=== PATIENT | female | born 1970 | race Two or more races ===

== ENCOUNTER 2020-06-21 10:54 | Inpatient (IN) | payer BC ==
--- NOTE | 2020-06-21 11:33 | EDM.PDOC ---
ED HPI GENERAL MEDICAL PROBLEM - General Chief Complaint: Respiratory Problem Stated Complaint: SHORTNESS OF BREATH Time Seen by Provider: 06/21/20 11:32 Source of Information: Reports: Patient, RN, RN Notes Reviewed History Limitations: Reports: No Limitations - History of Present Illness INITIAL COMMENTS - FREE TEXT/NARRATIVE: Pt presents to ER with c/o shortness of breath and fever sensations. Pt is worried that she may have been COVID exposed. 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 She began to feel ill Vijay, 06/18/20 with generalized malaise and body aches. The shortness of breath began slowly and was much worse today. Denies Hx of asthma or DVT/PE. Onset: Gradual Onset Date: 06/18/20 Duration: Constant, Getting Worse Location: Reports: Chest, Generalized Quality: Reports: Ache Severity: Severe Improves with: Reports: None Worsens with: Reports: Other (Exertion) Associated Symptoms: Reports: No Other Symptoms - Related Data Allergies Allergy/AdvReac Type Severity Reaction Status Date / Time No Known Allergies Allergy Verified 06/21/20 11:34 Home Meds: Home Meds Levothyroxine [Synthroid] 100 mcg PO DAILY 06/21/20 [History] lisinopriL [Lisinopril] 10 mg PO DAILY 06/21/20 [History] Past Medical History Cardiovascular History: Reports: Hypertension Endocrine/Metabolic History: Reports: Hypothyroidism Social & Family History - Family History Family Medical History: Noncontributory - Tobacco Use Smoking Status *Q: Never Smoker - Living Situation & Occupation Occupation: Employed ED ROS GENERAL - Review of Systems Review Of Systems: Comprehensive ROS is negative, except as noted in HPI. ED EXAM, GENERAL - Physical Exam Exam: See Below Exam Limited By: No Limitations General Appearance: Alert, WD/WN, No Apparent Distress Eye Exam: Bilateral Eye: Normal Inspection Nose: Normal Inspection, Normal Mucosa, No Blood Throat/Mouth: Normal Inspection, Normal Lips, Normal Teeth, Normal Gums, Normal Oropharynx, Normal Voice, No Airway Compromise Head: Atraumatic, Normocephalic Neck: Normal Inspection, Supple, Non-Tender, Full Range of Motion Respiratory/Chest: No Respiratory Distress, No Accessory Muscle Use, Chest Non- Tender, Crackles (Rt base). No: Rales, Rhonchi, Wheezing, Stridor Cardiovascular: Normal Peripheral Pulses, Regular Rate, Rhythm, No Edema GI/Abdominal: Normal Bowel Sounds, Soft, Non-Tender, No Organomegaly, No Distention, No Abnormal Bruit, No Mass Back Exam: Normal Inspection Extremities: Normal Inspection, Normal Range of Motion, Non-Tender, Normal Capillary Refill, No Pedal Edema Neurological: Alert, Oriented, CN II-XII Intact, Normal Cognition, Normal Gait, No Motor/Sensory Deficits Psychiatric: Normal Mood Skin Exam: Warm, Dry, Intact, Normal Color, No Rash Course - Vital Signs Last Recorded V/S: Last Vital Signs Temp 98.6 F 06/21/20 11:10 Pulse 70 06/21/20 11:10 Resp 24 H 06/21/20 11:10 BP 98/71 06/21/20 11:10 Pulse Ox 93 L 06/21/20 11:10 - Orders/Labs/Meds Orders: Active Orders 24 hr Category Date Time Status EKG 12 Lead [EKG Documentation Completion] [RC] STAT Care 06/21/20 14:47 Active Labs: Laboratory Tests 06/21/20 06/21/20 06/21/20 Range/Units 11:43 12:30 12:30 WBC 6.5 (5.0-10.0) 10^3/uL RBC 4.80 (4.2-5.4) 10^6/uL Hgb 13.9 (12.0-16.0) g/dL Hct 41.8 (37.0-47.0) % MCV 87.1 (80-100) fL MCH 29.0 (27.0-34.0) pg MCHC 33.3 (33.0-35.0) g/dL Plt Count 408 (150-450) 10^3/uL Neut % (Auto) 59.7 (42.2-75.2) % Lymph % (Auto) 30.8 (20.5-50.1) % [place] % (Auto) 7.9 (2-8) % Eos % (Auto) 1.4 (1.0-3.0) % Baso % (Auto) 0.2 (0.0-1.0) % Add Manual Diff Yes Neutrophils % (Manual) 63 (42-75) % Lymphocytes % (Manual) 28 (20-50) % Monocytes % (Manual) 7 (2-8) % Eosinophils % (Manual) 1 (1-3) % Basophils % (Manual) 1 PT 9.5 (9.0-12.0) SEC INR 1.0 (0.9-1.2) APTT 24.8 (22.0-34.0) SEC D-Dimer, Quantitative 942 H (0-400) ng/mL Sodium (136-145) mmol/L Potassium (3.5-5.1) mmol/L Chloride (98-107) mmol/L Carbon Dioxide (21-32) mmol/L Anion Gap (7-13) mEq/L BUN (7-18) mg/dL Creatinine (0.55-1.02) mg/dL Est Cr Clr Drug Dosing Estimated GFR (MDRD) BUN/Creatinine Ratio (No establ ref range) Glucose (74-99) mg/dL Calcium (8.5-10.1) mg/dL Total Bilirubin (0.2-1.0) mg/dL AST (15-37) U/L ALT (14-59) U/L Alkaline Phosphatase (46-116) U/L Lactate Dehydrogenase (81-234) U/L Troponin I (0.000-0.056) ng/mL C-Reactive Protein (0.0-0.9) mg/dL Total Protein (6.4-8.2) g/dL Albumin (3.4-5.0) g/dL Globulin Albumin/Globulin Ratio SARS CoV-2 RNA Rapid KERRY Positive H (NEGATIVE) 06/21/20 Range/Units 12:30 WBC (5.0-10.0) 10^3/uL RBC (4.2-5.4) 10^6/uL Hgb (12.0-16.0) g/dL Hct (37.0-47.0) % MCV (80-100) fL MCH (27.0-34.0) pg MCHC (33.0-35.0) g/dL Plt Count (150-450) 10^3/uL Neut % (Auto) (42.2-75.2) % Lymph % (Auto) (20.5-50.1) % [place] % (Auto) (2-8) % Eos % (Auto) (1.0-3.0) % Baso % (Auto) (0.0-1.0) % Add Manual Diff Neutrophils % (Manual) (42-75) % Lymphocytes % (Manual) (20-50) % Monocytes % (Manual) (2-8) % Eosinophils % (Manual) (1-3) % Basophils % (Manual) PT (9.0-12.0) SEC INR (0.9-1.2) APTT (22.0-34.0) SEC D-Dimer, Quantitative (0-400) ng/mL Sodium 141 (136-145) mmol/L Potassium 3.8 (3.5-5.1) mmol/L Chloride 103 (98-107) mmol/L Carbon Dioxide 31 (21-32) mmol/L Anion Gap 10.8 (7-13) mEq/L BUN 6 L (7-18) mg/dL Creatinine 1.01 (0.55-1.02) mg/dL Est Cr Clr Drug Dosing TNP Estimated GFR (MDRD) 58 BUN/Creatinine Ratio 5.9 (No establ ref range) Glucose 103 H (74-99) mg/dL Calcium 8.8 (8.5-10.1) mg/dL Total Bilirubin 0.5 (0.2-1.0) mg/dL AST 70 H (15-37) U/L ALT 63 H (14-59) U/L Alkaline Phosphatase 92 (46-116) U/L Lactate Dehydrogenase 316 H (81-234) U/L Troponin I < 0.017 (0.000-0.056) ng/mL C-Reactive Protein 1.2 H (0.0-0.9) mg/dL Total Protein 7.8 (6.4-8.2) g/dL Albumin 3.1 L (3.4-5.0) g/dL Globulin 4.7 Albumin/Globulin Ratio 0.66 SARS CoV-2 RNA Rapid KERRY (NEGATIVE) Meds: Medications Discontinued Medications Generic Name Dose Route Start Last Admin Trade Name Freq PRN Reason Stop Dose Admin Dexamethasone 6 mg 06/21/20 12:41 06/21/20 13:45 Dexamethasone IVPUSH 06/21/20 12:42 6 mg ONETIME ONE Administration Iopamidol 100 ml 06/21/20 13:09 06/21/20 14:04 Isovue-370 (76%) IVPUSH 06/21/20 13:10 90 ml ONETIME ONE Administration - Radiology Interpretation Free Text/Narrative:: XR Chest: Subtle increased peripheral density both lung thornton R>L per Rad. report. CT Chest: no PE. Patchy infiltrates consistent with viral (COVID) vasculitis and pneumonia per Rad. report. Departure - Departure Time of Disposition: 14:36 (admitted to Dr. Dias) Disposition: Admitted As Inpatient 66 Condition: Fair Clinical Impression: COVID-19, Hypoxia - Discharge Information *PRESCRIPTION DRUG MONITORING PROGRAM REVIEWED*: Not Applicable *COPY OF PRESCRIPTION DRUG MONITORING REPORT IN PATIENT RICARDO: Not Applicable Sepsis Event Note (ED) - Focused Exam Vital Signs: Vital Signs Temp Pulse Resp BP Pulse Ox 06/21/20 11:10 98.6 F 70 24 H 98/71 93 L - My Orders Last 24 Hours: My Active Orders 06/21/20 14:47 EKG 12 Lead [EKG Documentation Completion] [RC] STAT - Assessment/Plan Last 24 Hours: My Active Orders 06/21/20 14:47 EKG 12 Lead [EKG Documentation Completion] [RC] STAT
--- NOTE | 2020-06-21 12:27 | CR ---
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 O2 98% INTERPRETATION: Abnormal. 1. *Subtle increased peripheral density both lung thorn[place] (R>L). No atelectasis or collapse. 2. Normal cardiac silhouette. 3. No pulmonary vascular congestion, cephalization of flow, alveolar edema or dependent pleural effusion. 4. No lung mass or hilar lymphadenopathy. 5. No alveolar or central focal lobar consolidation. 6. Incidentally noted resection distal end of the right clavicle. 7. No pneumothorax or pneumomediastinum. Midline tracheal bronchial airway unremarkable.
[2020-06-21] MEDS ORDERED: Dexamethasone 4 MG/ML SDV IVPUSH ONE (12:41)
[2020-06-21 12:57] LABS: PTT,PARTIAL THROMBOPLSTIN TIME 24.8 SEC (22.0-34.0)
[2020-06-21 13:00] LABS: ANION GAP 10.8 mEq/L (7-13); CHLORIDE,CL 103 mmol/L (98-107); SODIUM,NA 141 mmol/L (136-145)
[2020-06-21] MEDS ORDERED: Iopamidol 755 Mg/ML 100 ML Bottle IVPUSH ONE (13:09)
--- NOTE | 2020-06-21 14:32 | CT ---
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 Scan technique: Volume acquisition of data from the chest (bony thorax, lungs and mediastinum) obtained during the intravenous administration 90 cc nonionic Isovue 370 contrast (note: Emergency department unable to access with 18-gauge needle) through a 20-gauge needle at 3.5 cc/s via injector while patient was lying supine on the Siemens multi slice scanner [place], [place]. All data archived in the PACS system for storage, reformatting axial/sagittal/coronal planes and study. Interpretation: ABNORMAL. 1. Multiple patchy, peripheral pleural-based, opacities (both lung thornton) consistent with the appearance of a COVID19 pneumonia and/or vasculitis. Differential considerations influenza pneumonia and septic emboli. 2. No associated dependent pleural effusions. 3. No dominant or suspicious lung mass; and, no hilar or mediastinal lymphadenopathy. 4. No intraluminal filling defect or thrombus identified in the main pulmonary artery circulation proximally (significant to note this exam suboptimal for PE study due to small needle size and low flow contrast). 5. No proximal lobar infiltrate or atelectasis. 6. No pneumothorax or pneumomediastinum. Midline tracheal bronchial airway unremarkable. 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
[2020-06-21] MEDS ORDERED: Acetaminophen 325 MG Tab PO PRN (15:33)
[2020-06-21] MEDS ORDERED: Magnesium Hydroxide 400 MG/5 ML Susp 30 ML Cup PO PRN (15:33)
[2020-06-21] MEDS ORDERED: Ondansetron 4 MG/2 ML SDV IVPUSH PRN (15:33)
--- NOTE | 2020-06-21 15:48 | PCM.HP ---
H&P History of Present Illness - General Date of Service: 06/21/20 Admit Problem/Dx: Admission Diagnosis/Problem Admission Diagnosis/Problem Pneumonitis Source of Information: Patient History Limitations: Reports: No Limitations - History of Present Illness Initial Comments - Free Text/Narative: Ismael is 50-year-old female with past medical history significant for hyperte nsion who presented to the ED for evaluation of increasing shortness of breath, cough onset 3-4 days ago. Patient reports she was okay until 4 days ago she started having cough, shortness of breath, on and off fevers, myalgia, arthralgia and general malaise. Cough is unproductive. She denies wheezing. Shortness of breath is worse with activity. Patient reports 2 days ago she went to [facility] with her friends. She could not remember being contacted for any sick patient. She denies abdominal pain, nausea, vomiting but does loose stools. She reports poor appetite and generalized weakness. She denies increased urinary frequency, dysuria. In the ED she was hypoxic on room air with O2 saturation in the low 80s. She was placed on 2 L with saturation improved 95. Labs significant for d-dimer 942, LDH 367, troponin negative, AST/ALT 70/63. CBC within normal limits. BMP within normal limits. COVID-19 test was positive. Chest x-ray shows subtle increased peripheral density in both lung thornton. CT chest was negative for PE. It did show multiple patchy peripheral pleural-based opacity in both lung consistent with COVID-19 infection. Admission was requested for further angie lees. Onset of Symptoms: Reports: Gradual Duration of Symptoms: Reports: Day(s): Location: Reports: Generalized Quality: Reports: Ache Improves with: Reports: None Worsens with: Reports: None Context: Reports: Activity/Exercise Associated Symptoms: Reports: Cough, Fever/Chills, Malaise, Shortness of Breath, Weakness - Related Data Allergies/Adverse Reactions: Allergies Allergy/AdvReac Type Severity Reaction Status Date / Time No Known Allergies Allergy Verified 06/21/20 11:34 Home Medications: Home Meds Levothyroxine [Synthroid] 100 mcg PO DAILY 06/21/20 [History] lisinopriL [Lisinopril] 10 mg PO DAILY 06/21/20 [History] Past Medical History HEENT History: Reports: Other (See Below) Other HEENT History: wears glasses Cardiovascular History: Reports: Hypertension Respiratory History: Reports: None Gastrointestinal History: Reports: None Genitourinary History: Reports: None 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 Musculoskeletal History: Reports: None Neurological History: Reports: None Psychiatric History: Reports: None Endocrine/Metabolic History: Reports: Hypothyroidism Hematologic History: Reports: None Immunologic History: Reports: None Oncologic (Cancer) History: Reports: None Dermatologic History: Reports: None - Past Surgical History Female Surgical History: Reports: None Social & Family History - Family History Family Medical History: Noncontributory - Tobacco Use Smoking Status *Q: Never Smoker Second Hand Smoke Exposure: No - Living Situation & Occupation Occupation: Employed H&P Review of Systems - Review of Systems: Review Of Systems: See Below General: Reports: No Symptoms HEENT: Reports: No Symptoms Pulmonary: Reports: No Symptoms Cardiovascular: Reports: No Symptoms Gastrointestinal: Reports: No Symptoms Genitourinary: Reports: No Symptoms Musculoskeletal: Reports: No Symptoms Skin: Reports: No Symptoms Psychiatric: Reports: No Symptoms Neurological: Reports: No Symptoms Hematologic/Lymphatic: Reports: No Symptoms Immunologic: Reports: No Symptoms Exam - Exam Exam: See Below - Vital Signs Vital Signs: Last Vital Signs Temp 98.6 F 06/21/20 11:10 Pulse 70 06/21/20 11:10 Resp 24 H 06/21/20 11:10 BP 98/71 06/21/20 11:10 Pulse Ox 93 L 06/21/20 11:10 Weight: 187 lb 9.6 oz - Exam Quality Assessment: Supplemental Oxygen, DVT Prophylaxis General: Alert, Oriented, 4 HEENT: PERRLA, Hearing Intact, Mucosa Moist & [place], Nares Patent, Normal Nasal Septum, Posterior Pharynx Clear, Conjunctiva Clear, EOMI, EACs Clear, TMs Clear Neck: Supple, Trachea Midline, 2 Lungs: Clear to Auscultation, Normal Respiratory Effort Cardiovascular: Regular Rate, Regular Rhythm GI/Abdominal Exam: Normal Bowel Sounds, Soft, Non-Tender, No Organomegaly, No Distention, No Abnormal Bruit, No Mass, Pelvis Stable (Female) Exam: Normal External Exam, Normal Speculum Exam, Normal Bimanual Exam Rectal (Female) Exam: Normal Exam, Normal Rectal Tone Back Exam: Normal Inspection, Full Range of Motion, NT Extremities: Normal Inspection, Normal Range of Motion, Non-Tender, No Pedal Edema, Normal Capillary Refill Skin: Warm, Dry, Intact Neurological: Cranial Nerves Intact, Reflexes Equal Bilateral Neuro Extensive - Mental Status: Alert, Oriented x3, Normal Mood/Affect, Normal Cognition Neuro Extensive - Motor, Sensory, Reflexes: CN II-XII Intact, Normal Gait, Normal Reflexes Psychiatric: Alert, Normal Affect, Normal Mood - Patient Data Lab Results Last 24 hrs: Laboratory Results - last 24 hr 06/21/20 06/21/20 06/21/20 Range/Units 11:43 12:30 12:30 WBC 6.5 (5.0-10.0) 10^3/uL RBC 4.80 (4.2-5.4) 10^6/uL Hgb 13.9 (12.0-16.0) g/dL Hct 41.8 (37.0-47.0) % MCV 87.1 (80-100) fL MCH 29.0 (27.0-34.0) pg MCHC 33.3 (33.0-35.0) g/dL Plt Count 408 (150-450) 10^3/uL Neut % (Auto) 59.7 (42.2-75.2) % Lymph % (Auto) 30.8 (20.5-50.1) % [place] % (Auto) 7.9 (2-8) % Eos % (Auto) 1.4 (1.0-3.0) % Baso % (Auto) 0.2 (0.0-1.0) % Add Manual Diff Yes Neutrophils % (Manual) 63 (42-75) % Lymphocytes % (Manual) 28 (20-50) % Monocytes % (Manual) 7 (2-8) % Eosinophils % (Manual) 1 (1-3) % Basophils % (Manual) 1 PT 9.5 (9.0-12.0) SEC INR 1.0 (0.9-1.2) APTT 24.8 (22.0-34.0) SEC D-Dimer, Quantitative 942 H (0-400) ng/mL Sodium (136-145) mmol/L Potassium (3.5-5.1) mmol/L Chloride (98-107) mmol/L Carbon Dioxide (21-32) mmol/L Anion Gap (7-13) mEq/L BUN (7-18) mg/dL Creatinine (0.55-1.02) mg/dL Est Cr Clr Drug Dosing Estimated GFR (MDRD) BUN/Creatinine Ratio (No establ ref range) Glucose (74-99) mg/dL Calcium (8.5-10.1) mg/dL Total Bilirubin (0.2-1.0) mg/dL AST (15-37) U/L ALT (14-59) U/L Alkaline Phosphatase (46-116) U/L Lactate Dehydrogenase (81-234) U/L Troponin I (0.000-0.056) ng/mL C-Reactive Protein (0.0-0.9) mg/dL Total Protein (6.4-8.2) g/dL Albumin (3.4-5.0) g/dL Globulin Albumin/Globulin Ratio SARS CoV-2 RNA Rapid KERRY Positive H (NEGATIVE) 06/21/20 Range/Units 12:30 WBC (5.0-10.0) 10^3/uL RBC (4.2-5.4) 10^6/uL Hgb (12.0-16.0) g/dL Hct (37.0-47.0) % MCV (80-100) fL MCH (27.0-34.0) pg MCHC (33.0-35.0) g/dL Plt Count (150-450) 10^3/uL Neut % (Auto) (42.2-75.2) % Lymph % (Auto) (20.5-50.1) % [place] % (Auto) (2-8) % Eos % (Auto) (1.0-3.0) % Baso % (Auto) (0.0-1.0) % Add Manual Diff Neutrophils % (Manual) (42-75) % Lymphocytes % (Manual) (20-50) % Monocytes % (Manual) (2-8) % Eosinophils % (Manual) (1-3) % Basophils % (Manual) PT (9.0-12.0) SEC INR (0.9-1.2) APTT (22.0-34.0) SEC D-Dimer, Quantitative (0-400) ng/mL Sodium 141 (136-145) mmol/L Potassium 3.8 (3.5-5.1) mmol/L Chloride 103 (98-107) mmol/L Carbon Dioxide 31 (21-32) mmol/L Anion Gap 10.8 (7-13) mEq/L BUN 6 L (7-18) mg/dL Creatinine 1.01 (0.55-1.02) mg/dL Est Cr Clr Drug Dosing TNP Estimated GFR (MDRD) 58 BUN/Creatinine Ratio 5.9 (No establ ref range) Glucose 103 H (74-99) mg/dL Calcium 8.8 (8.5-10.1) mg/dL Total Bilirubin 0.5 (0.2-1.0) mg/dL AST 70 H (15-37) U/L ALT 63 H (14-59) U/L Alkaline Phosphatase 92 (46-116) U/L Lactate Dehydrogenase 316 H (81-234) U/L Troponin I < 0.017 (0.000-0.056) ng/mL C-Reactive Protein 1.2 H (0.0-0.9) mg/dL Total Protein 7.8 (6.4-8.2) g/dL Albumin 3.1 L (3.4-5.0) g/dL Globulin 4.7 Albumin/Globulin Ratio 0.66 SARS CoV-2 RNA Rapid KERRY (NEGATIVE) Result Diagrams: 06/21/20 12:30 06/21/20 12:30 - Problem List (1) Acute respiratory failure with hypoxia SNOMED Code(s): 76111051, 499682699 ICD Code: J96.01 - ACUTE RESPIRATORY FAILURE WITH HYPOXIA Status: Acute Current Visit: Yes (2) COVID-19 SNOMED Code(s): 893402712 ICD Code: U07.1 - COVID-19 Status: Acute Current Visit: No (3) Hypoxia SNOMED Code(s): 752839572 ICD Code: R09.02 - HYPOXEMIA Status: Acute Current Visit: No (4) Pneumonia due to COVID-19 virus SNOMED Code(s): 773760934664967731 ICD Code: U07.1 - COVID-19; J12.89 - OTHER VIRAL PNEUMONIA Status: Acute Current Visit: Yes Problem List Initiated/Reviewed/Updated: Yes Orders Last 24hrs: Active Orders 24 hr Category Date Time Status Admission Diagnosis [ADT] Routine ADT 06/21/20 14:48 Ordered Patient Status [ADT] Routine ADT 06/21/20 14:48 Active Ambulate [RC] ASDIRECTED Care 06/21/20 15:33 Ordered Blood Glucose Check, Bedside [RC] QIDACANDBED Care 06/21/20 15:33 Ordered Cardiac Monitoring [RC] CONTINUOUS Care 06/21/20 15:38 Ordered EKG 12 Lead [EKG Documentation Completion] [RC] STAT Care 06/21/20 14:47 Active Height and Weight [RC] DAILY Care 06/21/20 15:33 Ordered Intake and Output [RC] QSHIFT Care 06/21/20 15:38 Ordered Notify Provider Vital Signs [RC] ASDIRECTED Care 06/21/20 15:38 Ordered Oxygen Therapy [RC] PRN Care 06/21/20 15:37 Ordered VTE/DVT Education [RC] PER UNIT ROUTINE Care 06/21/20 15:37 Ordered Vital Signs [RC] Q4H Care 06/21/20 15:37 Ordered Respiratory Care Assess and Treatment [CONS] Routine Cons 06/21/20 15:33 Ordered Heart Healthy Diet [DIET] Diet 06/21/20 Dinner Ordered Chest 1V Frontal [CR] AM Exams 06/22/20 05:11 Ordered C-REACTIVE PROTEIN [REF] DAILY Lab 06/22/20 05:00 Ordered C-REACTIVE PROTEIN [REF] DAILY Lab 06/23/20 05:00 Ordered C-REACTIVE PROTEIN [REF] DAILY Lab 06/24/20 05:00 Ordered CBC W/O DIFF,HEMOGRAM [HEME] AM Lab 06/22/20 05:11 Ordered CBC W/O DIFF,HEMOGRAM [HEME] AM Lab 06/23/20 05:11 Ordered CBC W/O DIFF,HEMOGRAM [HEME] AM Lab 06/24/20 05:11 Ordered COMPREHENSIVE METABOLIC PN,CMP [CHEM] AM Lab 06/22/20 05:11 Ordered COMPREHENSIVE METABOLIC PN,CMP [CHEM] AM Lab 06/23/20 05:11 Ordered COMPREHENSIVE METABOLIC PN,CMP [CHEM] AM Lab 06/24/20 05:11 Ordered FERRITIN [CHEM] DAILY Lab 06/22/20 05:00 Ordered FERRITIN [CHEM] DAILY Lab 06/23/20 05:00 Ordered FERRITIN [CHEM] DAILY Lab 06/24/20 05:00 Ordered GRAM STAIN [RM] Routine Lab 06/21/20 15:33 Ordered INR,PT,PROTHROMBIN TIME [COAG] AM Lab 06/22/20 05:11 Ordered INR,PT,PROTHROMBIN TIME [COAG] AM Lab 06/23/20 05:11 Ordered INR,PT,PROTHROMBIN TIME [COAG] AM Lab 06/24/20 05:11 Ordered LACTATE DEHYDROGENASE,LDH [CHEM] DAILY Lab 06/22/20 05:00 Ordered LACTATE DEHYDROGENASE,LDH [CHEM] DAILY Lab 06/23/20 05:00 Ordered LACTATE DEHYDROGENASE,LDH [CHEM] DAILY Lab 06/24/20 05:00 Ordered MAGNESIUM [CHEM] Routine Lab 06/21/20 15:33 Ordered PHOSPHORUS [CHEM] Routine Lab 06/21/20 15:33 Ordered PROCALCITONIN [REF] DAILY Lab 06/22/20 05:00 Ordered PROCALCITONIN [REF] DAILY Lab 06/23/20 05:00 Ordered PROCALCITONIN [REF] DAILY Lab 06/24/20 05:00 Ordered PTT,PARTIAL THROMBOPLSTIN TIME [COAG] AM Lab 06/22/20 05:11 Ordered PTT,PARTIAL THROMBOPLSTIN TIME [COAG] AM Lab 06/23/20 05:11 Ordered PTT,PARTIAL THROMBOPLSTIN TIME [COAG] AM Lab 06/24/20 05:11 Ordered TROPONIN I [CHEM] AM Lab 06/22/20 05:11 Ordered TROPONIN I [CHEM] AM Lab 06/23/20 05:11 Ordered TROPONIN I [CHEM] AM Lab 06/24/20 05:11 Ordered Acetaminophen [TylenoL] Med 06/21/20 15:33 Ordered 650 mg PO Q4H PRN Enoxaparin [Lovenox] Med 06/21/20 21:00 Ordered 40 mg SUBCUT Q12H Magnesium Hydroxide [Milk of Magnesia] Med 06/21/20 15:33 Ordered 30 ml PO Q12H PRN Ondansetron [Zofran] Med 06/21/20 15:33 Ordered 4 mg IVPUSH Q6H PRN Resuscitation Status Routine Resus Stat 06/21/20 15:33 Ordered Medication Orders Acetaminophen (Tylenol) 650 mg PO Q4H PRN PRN Reason: Pain (Mild 1-3)/fever Enoxaparin Sodium (Lovenox) 40 mg SUBCUT Q12H REYES Magnesium Hydroxide (Milk Of Magnesia) 30 ml PO Q12H PRN PRN Reason: Constipation Ondansetron HCl (Zofran) 4 mg IVPUSH Q6H PRN PRN Reason: Nausea/Vomiting Assessment/Plan Comment:: #COVID-19 pneumonia #Acute respiratory failure due to COVID-19 PNA Admit to medical unit Monitor vitals Give 2 units of convalescent plasma IV Dexamethasone 6 mg daily x10 Remdesivir 200 mg stat then 100 mg daily. I spoke with patient and provided information about Remdesevir treatment as being under emergency use authorization (EUA) and not fully FDA approved or reviewed. I discussed potential side effects including liver abnormalities. Also discussed other pot ential treatment options that are currently not FDA approved to treat COVID-19. Patient gives permission for Remdesevir. Continue supplemental oxygen and wean down oxygen. Supportive care Dialy covid 19 labs Contact and droplet precautions #Hypertension Within acceptable limits Continue home medication Monitor BP closely #Obesity Advised to lose weight #Cardiac diet #CODE STATUS Discussion with patient and prefer to remain full code at this time
[2020-06-21] MEDS: Enoxaparin 40 MG/0.4 ML Syringe SUBCUT SCH (21:20)
[2020-06-22] MEDS: Levothyroxine 100 MCG Tab PO SCH ×2 (04:36→05:42)
[2020-06-22 06:52] LABS: PTT,PARTIAL THROMBOPLSTIN TIME 25.5 SEC (22.0-34.0)
[2020-06-22 06:57] LABS: ANION GAP 13.8 mEq/L (7-13); CHLORIDE,CL 102 mmol/L (98-107); SODIUM,NA 140 mmol/L (136-145)
[2020-06-22] MEDS: Dexamethasone 4 MG/ML SDV IVPUSH SCH (08:42)
[2020-06-22] MEDS: Enoxaparin 40 MG/0.4 ML Syringe SUBCUT SCH ×2 (08:44→20:14)
[2020-06-22] MEDS ORDERED: Lisinopril 10 MG Tab PO SCH (09:00)
--- NOTE | 2020-06-22 09:52 | PCM.PN ---
- General Info Date of Service: 06/22/20 Admission Dx/Problem (Free Text): Admission Diagnosis/Problem Admission Diagnosis/Problem COVID-9 PNA Subjective Update: Ismael is 50-year-old female with past medical history significant for hypertension who presented to the ED for evaluation of increasing shortness of breath, cough onset 3-4 days ago. She tested positive for COVID-19 and was admitted for acute respiratory failure with hypoxia due to COVID-19 pneumonia. Chest x-ray shows subtle increased peripheral density in both lung [place]. CT chest was negative for PE. It did show multiple patchy peripheral pleural-based opacity in both lung consistent with COVID-19 infection. Today patient was seen and examined. She is doing okay. Currently on 1 L via nasal cannula saturating at 95%. She denies fever, chills. Shortness of breath and cough is better this morning. She was noted to be bradycardic overnight during sleep. Heart rate jumped up when nursing staff wake her up. She was asymptomatic. Heart rate in the 60s this morning. She is not had any episode of bradycardia this morning. Functional Status: Reports: Pain Controlled - Review of Systems General: Reports: No Symptoms HEENT: Reports: No Symptoms Pulmonary: Reports: No Symptoms Cardiovascular: Reports: No Symptoms Gastrointestinal: Reports: No Symptoms Genitourinary: Reports: No Symptoms Musculoskeletal: Reports: No Symptoms Skin: Reports: No Symptoms Neurological: Reports: No Symptoms Psychiatric: Reports: No Symptoms - Patient Data Vitals - Most Recent: Last Vital Signs Temp 98.5 F 06/22/20 07:28 Pulse 44 L 06/22/20 07:28 Resp 20 06/22/20 07:28 BP 96/66 06/22/20 07:28 Pulse Ox 96 06/22/20 08:34 Weight - Most Recent: 188 lb I&O - Last 24 Hours: Intake & Output 06/21/20 06/22/20 06/22/20 22:59 06:59 14:59 Intake Total 600 Balance 600 Lab Results Last 24 Hours: Laboratory Results - last 24 hr 06/21/20 06/21/20 06/21/20 Range/Units 11:43 12:30 12:30 WBC 6.5 (5.0-10.0) 10^3/uL RBC 4.80 (4.2-5.4) 10^6/uL Hgb 13.9 (12.0-16.0) g/dL Hct 41.8 (37.0-47.0) % MCV 87.1 (80-100) fL MCH 29.0 (27.0-34.0) pg MCHC 33.3 (33.0-35.0) g/dL Plt Count 408 (150-450) 10^3/uL Neut % (Auto) 59.7 (42.2-75.2) % Lymph % (Auto) 30.8 (20.5-50.1) % [place] % (Auto) 7.9 (2-8) % Eos % (Auto) 1.4 (1.0-3.0) % Baso % (Auto) 0.2 (0.0-1.0) % Add Manual Diff Yes Neutrophils % (Manual) 63 (42-75) % Lymphocytes % (Manual) 28 (20-50) % Monocytes % (Manual) 7 (2-8) % Eosinophils % (Manual) 1 (1-3) % Basophils % (Manual) 1 PT 9.5 (9.0-12.0) SEC INR 1.0 (0.9-1.2) APTT 24.8 (22.0-34.0) SEC D-Dimer, Quantitative 942 H (0-400) ng/mL Sodium (136-145) mmol/L Potassium (3.5-5.1) mmol/L Chloride (98-107) mmol/L Carbon Dioxide (21-32) mmol/L Anion Gap (7-13) mEq/L BUN (7-18) mg/dL Creatinine (0.55-1.02) mg/dL Est Cr Clr Drug Dosing Estimated GFR (MDRD) BUN/Creatinine Ratio (No establ ref range) Glucose (74-99) mg/dL POC Glucose (70-105) mg/dl Calcium (8.5-10.1) mg/dL Phosphorus (2.6-4.7) mg/dL Magnesium (1.8-2.4) mg/dL Ferritin (8-252) mg/mL Total Bilirubin (0.2-1.0) mg/dL AST (15-37) U/L ALT (14-59) U/L Alkaline Phosphatase (46-116) U/L Lactate Dehydrogenase (81-234) U/L Troponin I (0.000-0.056) ng/mL C-Reactive Protein (0.0-0.9) mg/dL Total Protein (6.4-8.2) g/dL Albumin (3.4-5.0) g/dL Globulin Albumin/Globulin Ratio SARS CoV-2 RNA Rapid KERRY Positive H (NEGATIVE) Blood Type 06/21/20 06/21/20 06/21/20 Range/Units 12:30 12:30 12:30 WBC (5.0-10.0) 10^3/uL RBC (4.2-5.4) 10^6/uL Hgb (12.0-16.0) g/dL Hct (37.0-47.0) % MCV (80-100) fL MCH (27.0-34.0) pg MCHC (33.0-35.0) g/dL Plt Count (150-450) 10^3/uL Neut % (Auto) (42.2-75.2) % Lymph % (Auto) (20.5-50.1) % [place] % (Auto) (2-8) % Eos % (Auto) (1.0-3.0) % Baso % (Auto) (0.0-1.0) % Add Manual Diff Neutrophils % (Manual) (42-75) % Lymphocytes % (Manual) (20-50) % Monocytes % (Manual) (2-8) % Eosinophils % (Manual) (1-3) % Basophils % (Manual) PT (9.0-12.0) SEC INR (0.9-1.2) APTT (22.0-34.0) SEC D-Dimer, Quantitative (0-400) ng/mL Sodium 141 (136-145) mmol/L Potassium 3.8 (3.5-5.1) mmol/L Chloride 103 (98-107) mmol/L Carbon Dioxide 31 (21-32) mmol/L Anion Gap 10.8 (7-13) mEq/L BUN 6 L (7-18) mg/dL Creatinine 1.01 (0.55-1.02) mg/dL Est Cr Clr Drug Dosing TNP Estimated GFR (MDRD) 58 BUN/Creatinine Ratio 5.9 (No establ ref range) Glucose 103 H (74-99) mg/dL POC Glucose (70-105) mg/dl Calcium 8.8 (8.5-10.1) mg/dL Phosphorus 2.3 L (2.6-4.7) mg/dL Magnesium 2.3 (1.8-2.4) mg/dL Ferritin (8-252) mg/mL Total Bilirubin 0.5 (0.2-1.0) mg/dL AST 70 H (15-37) U/L ALT 63 H (14-59) U/L Alkaline Phosphatase 92 (46-116) U/L Lactate Dehydrogenase 316 H (81-234) U/L Troponin I < 0.017 (0.000-0.056) ng/mL C-Reactive Protein 1.2 H (0.0-0.9) mg/dL Total Protein 7.8 (6.4-8.2) g/dL Albumin 3.1 L (3.4-5.0) g/dL Globulin 4.7 Albumin/Globulin Ratio 0.66 SARS CoV-2 RNA Rapid KERRY (NEGATIVE) Blood Type A POSITIVE 06/21/20 06/22/20 06/22/20 Range/Units 17:09 05:53 05:53 WBC 6.0 (5.0-10.0) 10^3/uL RBC 4.95 (4.2-5.4) 10^6/uL Hgb 14.1 (12.0-16.0) g/dL Hct 42.2 (37.0-47.0) % MCV 85.3 (80-100) fL MCH 28.5 (27.0-34.0) pg MCHC 33.4 (33.0-35.0) g/dL Plt Count 483 H D (150-450) 10^3/uL Neut % (Auto) (42.2-75.2) % Lymph % (Auto) (20.5-50.1) % [place] % (Auto) (2-8) % Eos % (Auto) (1.0-3.0) % Baso % (Auto) (0.0-1.0) % Add Manual Diff Neutrophils % (Manual) (42-75) % Lymphocytes % (Manual) (20-50) % Monocytes % (Manual) (2-8) % Eosinophils % (Manual) (1-3) % Basophils % (Manual) PT 10.0 (9.0-12.0) SEC INR 1.1 (0.9-1.2) APTT 25.5 (22.0-34.0) SEC D-Dimer, Quantitative (0-400) ng/mL Sodium (136-145) mmol/L Potassium (3.5-5.1) mmol/L Chloride (98-107) mmol/L Carbon Dioxide (21-32) mmol/L Anion Gap (7-13) mEq/L BUN (7-18) mg/dL Creatinine (0.55-1.02) mg/dL Est Cr Clr Drug Dosing Estimated GFR (MDRD) BUN/Creatinine Ratio (No establ ref range) Glucose (74-99) mg/dL POC Glucose 117 H (70-105) mg/dl Calcium (8.5-10.1) mg/dL Phosphorus (2.6-4.7) mg/dL Magnesium (1.8-2.4) mg/dL Ferritin (8-252) mg/mL Total Bilirubin (0.2-1.0) mg/dL AST (15-37) U/L ALT (14-59) U/L Alkaline Phosphatase (46-116) U/L Lactate Dehydrogenase (81-234) U/L Troponin I (0.000-0.056) ng/mL C-Reactive Protein (0.0-0.9) mg/dL Total Protein (6.4-8.2) g/dL Albumin (3.4-5.0) g/dL Globulin Albumin/Globulin Ratio SARS CoV-2 RNA Rapid KERRY (NEGATIVE) Blood Type 06/22/20 06/22/20 06/22/20 Range/Units 05:53 05:53 05:53 WBC (5.0-10.0) 10^3/uL RBC (4.2-5.4) 10^6/uL Hgb (12.0-16.0) g/dL Hct (37.0-47.0) % MCV (80-100) fL MCH (27.0-34.0) pg MCHC (33.0-35.0) g/dL Plt Count (150-450) 10^3/uL Neut % (Auto) (42.2-75.2) % Lymph % (Auto) (20.5-50.1) % [place] % (Auto) (2-8) % Eos % (Auto) (1.0-3.0) % Baso % (Auto) (0.0-1.0) % Add Manual Diff Neutrophils % (Manual) (42-75) % Lymphocytes % (Manual) (20-50) % Monocytes % (Manual) (2-8) % Eosinophils % (Manual) (1-3) % Basophils % (Manual) PT (9.0-12.0) SEC INR (0.9-1.2) APTT (22.0-34.0) SEC D-Dimer, Quantitative (0-400) ng/mL Sodium 140 (136-145) mmol/L Potassium 3.8 (3.5-5.1) mmol/L Chloride 102 (98-107) mmol/L Carbon Dioxide 28 (21-32) mmol/L Anion Gap 13.8 H (7-13) mEq/L BUN 9 (7-18) mg/dL Creatinine 0.79 (0.55-1.02) mg/dL Est Cr Clr Drug Dosing 70.47 Estimated GFR (MDRD) > 60 BUN/Creatinine Ratio 11.4 (No establ ref range) Glucose 121 H (74-99) mg/dL POC Glucose (70-105) mg/dl Calcium 9.4 (8.5-10.1) mg/dL Phosphorus (2.6-4.7) mg/dL Magnesium (1.8-2.4) mg/dL Ferritin 463 H (8-252) mg/mL Total Bilirubin 0.5 (0.2-1.0) mg/dL AST 78 H (15-37) U/L ALT 85 H (14-59) U/L Alkaline Phosphatase 101 (46-116) U/L Lactate Dehydrogenase 320 H (81-234) U/L Troponin I < 0.017 (0.000-0.056) ng/mL C-Reactive Protein (0.0-0.9) mg/dL Total Protein 8.1 (6.4-8.2) g/dL Albumin 3.2 L (3.4-5.0) g/dL Globulin 4.9 Albumin/Globulin Ratio 0.65 SARS CoV-2 RNA Rapid KERRY (NEGATIVE) Blood Type 06/22/20 06/22/20 Range/Units 05:53 05:53 WBC (5.0-10.0) 10^3/uL RBC (4.2-5.4) 10^6/uL Hgb (12.0-16.0) g/dL Hct (37.0-47.0) % MCV (80-100) fL MCH (27.0-34.0) pg MCHC (33.0-35.0) g/dL Plt Count (150-450) 10^3/uL Neut % (Auto) (42.2-75.2) % Lymph % (Auto) (20.5-50.1) % [place] % (Auto) (2-8) % Eos % (Auto) (1.0-3.0) % Baso % (Auto) (0.0-1.0) % Add Manual Diff Neutrophils % (Manual) (42-75) % Lymphocytes % (Manual) (20-50) % Monocytes % (Manual) (2-8) % Eosinophils % (Manual) (1-3) % Basophils % (Manual) PT (9.0-12.0) SEC INR (0.9-1.2) APTT (22.0-34.0) SEC D-Dimer, Quantitative 1360 H (0-400) ng/mL Sodium (136-145) mmol/L Potassium (3.5-5.1) mmol/L Chloride (98-107) mmol/L Carbon Dioxide (21-32) mmol/L Anion Gap (7-13) mEq/L BUN (7-18) mg/dL Creatinine (0.55-1.02) mg/dL Est Cr Clr Drug Dosing Estimated GFR (MDRD) BUN/Creatinine Ratio (No establ ref range) Glucose (74-99) mg/dL POC Glucose (70-105) mg/dl Calcium (8.5-10.1) mg/dL Phosphorus (2.6-4.7) mg/dL Magnesium (1.8-2.4) mg/dL Ferritin (8-252) mg/mL Total Bilirubin (0.2-1.0) mg/dL AST (15-37) U/L ALT (14-59) U/L Alkaline Phosphatase (46-116) U/L Lactate Dehydrogenase (81-234) U/L Troponin I (0.000-0.056) ng/mL C-Reactive Protein 2.0 H (0.0-0.9) mg/dL Total Protein (6.4-8.2) g/dL Albumin (3.4-5.0) g/dL Globulin Albumin/Globulin Ratio SARS CoV-2 RNA Rapid KERRY (NEGATIVE) Blood Type Med Orders - Current: Current Medications Acetaminophen (Tylenol) 650 mg PO Q4H PRN PRN Reason: Pain (Mild 1-3)/fever Dexamethasone (Dexamethasone) 6 mg IVPUSH DAILY [facility] Stop: 07/02/20 09:01 Last Admin: 06/22/20 08:42 Dose: 6 mg Documented by: Enoxaparin Sodium (Lovenox) 40 mg SUBCUT Q12HR [facility] Last Admin: 06/22/20 08:44 Dose: 40 mg Documented by: Remdesivir 100 mg/ Sodium (Chloride) 210 mls @ 210 mls/hr IV DAILY [facility] Stop: 06/26/20 09:59 Remdesivir 200 mg/ Sodium (Chloride) 210 mls @ 210 mls/hr IV ONETIME ONE Stop: 06/22/20 09:59 Influenza Virus Vaccine (Pharmacy To Dose - Influenza Vaccine) 1 each IM ONETIME PRN PRN Reason: vaccine Levothyroxine Sodium (Synthroid) 100 mcg PO ACBRK [facility] Last Admin: 06/22/20 05:42 Dose: Not Given Documented by: Lisinopril (Prinivil) 10 mg PO DAILY [facility] Last Admin: 06/22/20 08:41 Dose: Not Given Documented by: Magnesium Hydroxide (Milk Of Magnesia) 30 ml PO Q12H PRN PRN Reason: Constipation Ondansetron HCl (Zofran) 4 mg IVPUSH Q6H PRN PRN Reason: Nausea/Vomiting Discontinued Medications Dexamethasone (Dexamethasone) 6 mg IVPUSH ONETIME ONE Stop: 06/21/20 12:42 Last Admin: 06/21/20 13:45 Dose: 6 mg Documented by: Iopamidol ([id number] (76%)) 100 ml IVPUSH ONETIME ONE Stop: 06/21/20 13:10 Last Admin: 06/21/20 14:04 Dose: 90 ml Documented by: - Exam Quality Assessment: Supplemental Oxygen, DVT Prophylaxis General: Alert, Oriented HEENT: Pupils Equal, Pupils Reactive, EOMI, Mucous Membr. Moist/[place] Neck: Supple Lungs: Clear to Auscultation, Normal Respiratory Effort Cardiovascular: Regular Rate, Regular Rhythm GI/Abdominal Exam: Normal Bowel Sounds, Soft, Non-Tender, No Organomegaly, No Distention, No Abnormal Bruit, No Mass, Pelvis Stable (Female) Exam: Normal External Exam, Normal Speculum Exam, Normal Bimanual Exam Back Exam: Normal Inspection, Full Range of Motion Extremities: Normal Inspection, Normal Range of Motion, Non-Tender, No Pedal Edema, Normal Capillary Refill Skin: Warm, Dry, Intact Wound/Incisions: Healing Well Neurological: No New Focal Deficit Psy/Mental Status: Alert, Normal Affect, Normal Mood Sepsis Event Note - Evaluation Sepsis Screening Result: No Definite Risk - Focused Exam Vital Signs: Vital Signs Temp Pulse Pulse Resp BP Pulse Ox Pulse Ox 06/22/20 08:34 96 06/22/20 07:28 98.5 F 44 L 20 96/66 96 06/22/20 04:33 97.5 F 48 L 20 111/69 96 06/21/20 23:27 97.5 F 57 L 24 H 103/69 95 - Problem List & Annotations (1) Acute respiratory failure with hypoxia SNOMED Code(s): 78492655, 126513652 Code(s): J96.01 - ACUTE RESPIRATORY FAILURE WITH HYPOXIA Status: Acute Current Visit: Yes (2) COVID-19 SNOMED Code(s): 222804205 Code(s): U07.1 - COVID-19 Status: Acute Current Visit: No (3) Hypoxia SNOMED Code(s): 418666126 Code(s): R09.02 - HYPOXEMIA Status: Acute Current Visit: No (4) Pneumonia due to COVID-19 virus SNOMED Code(s): 915336700723082534 Code(s): U07.1 - COVID-19; J12.89 - OTHER VIRAL PNEUMONIA Status: Acute Current Visit: Yes (5) Hypomagnesemia SNOMED Code(s): 754065096 Code(s): E83.42 - HYPOMAGNESEMIA Status: Acute Current Visit: Yes (6) Hypertension SNOMED Code(s): 33348839 Code(s): I10 - ESSENTIAL (PRIMARY) HYPERTENSION Status: Acute Current Visit: Yes (7) Obesity SNOMED Code(s): 834339861, 293042895 Code(s): E66.9 - OBESITY, UNSPECIFIED Status: Acute Current Visit: Yes - Problem List Review Problem List Initiated/Reviewed/Updated: Yes - My Orders Last 24 Hours: My Active Orders 06/21/20 12:30 ABO/RH TYPE [BBK] Routine FRESH FROZEN PLASMA [BBK] Routine 06/21/20 15:33 Ambulate [RC] ASDIRECTED Height and Weight [RC] 06 Respiratory Care Assess and Treatment [CONS] Routine GRAM STAIN [RM] Routine Acetaminophen [TylenoL] 650 mg PO Q4H PRN Magnesium Hydroxide [Milk of Magnesia] 30 ml PO Q12H PRN Ondansetron [Zofran] 4 mg IVPUSH Q6H PRN Resuscitation Status Routine 06/21/20 15:37 Oxygen Therapy [RC] PRN VTE/DVT Education [RC] PER UNIT ROUTINE Vital Signs [RC] 00,04,08,12,16,20 06/21/20 15:38 Cardiac Monitoring [RC] ,20 Intake and Output [RC] QSHIFT Notify Provider Vital Signs [RC] ASDIRECTED 06/21/20 16:14 Verify Patient Consent Obtain [RC] ASDIRECTED Transfuse Fresh Frozen Plasma [COMM] Routine 06/21/20 16:22 Isolation [COMM] Routine 06/21/20 Dinner Heart Healthy Diet [DIET] 06/21/20 17:37 Influenza Vaccine Charge [RC] .DISCHARGE Pharmacy to Dose - InFluenza V [Pharmacy to Dose - InFluenza Vaccine] 1 each IM ONETIME PRN 06/21/20 21:00 Enoxaparin [Lovenox] 40 mg SUBCUT Q12HR 06/22/20 05:53 PROCALCITONIN [REF] DAILY 06/22/20 06:00 Levothyroxine [Synthroid] 100 mcg PO ACBRK 06/22/20 09:00 Remdesivir (Eua) [Remdesivir (EUA)] 200 mg Sodium Chloride 0.9% [Normal Saline] 210 ml IV ONETIME dexAMETHasone [Dexamethasone] 6 mg IVPUSH DAILY lisinopriL [Prinivil] 10 mg PO DAILY 06/23/20 05:00 C-REACTIVE PROTEIN [REF] DAILY FERRITIN [CHEM] DAILY LACTATE DEHYDROGENASE,LDH [CHEM] DAILY PROCALCITONIN [REF] DAILY 06/23/20 05:11 CBC W/O DIFF,HEMOGRAM [HEME] AM COMPREHENSIVE METABOLIC PN,CMP [CHEM] AM INR,PT,PROTHROMBIN TIME [COAG] AM PTT,PARTIAL THROMBOPLSTIN TIME [COAG] AM TROPONIN I [CHEM] AM 06/23/20 07:00 DD [D-DIMER QUANTITATIVE] [COAG] DAILY 06/23/20 09:00 Remdesivir (Eua) [Remdesivir (EUA)] 100 mg Sodium Chloride 0.9% [Normal Saline] 210 ml IV DAILY 06/24/20 05:00 C-REACTIVE PROTEIN [REF] DAILY FERRITIN [CHEM] DAILY LACTATE DEHYDROGENASE,LDH [CHEM] DAILY PROCALCITONIN [REF] DAILY 06/24/20 05:11 CBC W/O DIFF,HEMOGRAM [HEME] AM COMPREHENSIVE METABOLIC PN,CMP [CHEM] AM INR,PT,PROTHROMBIN TIME [COAG] AM PTT,PARTIAL THROMBOPLSTIN TIME [COAG] AM TROPONIN I [CHEM] AM 06/24/20 07:00 DD [D-DIMER QUANTITATIVE] [COAG] DAILY 06/25/20 07:00 DD [D-DIMER QUANTITATIVE] [COAG] DAILY 06/26/20 07:00 DD [D-DIMER QUANTITATIVE] [COAG] DAILY 06/27/20 07:00 DD [D-DIMER QUANTITATIVE] [COAG] DAILY - Plan Plan:: #COVID-19 pneumonia #Acute respiratory failure due to COVID-19 PNA 2 units of convalescent plasma ordered Continue IV Dexamethasone 6 mg daily to complete 10-day course Continue Remdesivir 100 mg daily to complete a total of 5 days course. I spoke with patient and provided information about Remdesevir treatment as being under emergency use authorization (EUA) and not fully FDA approved or reviewed. I discussed potential side effects including liver abnormalities. Also discussed other potential treatment options that are currently not FDA approved to treat COVID-19. Patient gives permission for Remdesevir. Continue supplemental oxygen and wean down oxygen. Supportive care Dialy covid 19 labs Contact and droplet precautions #Hypomagnesemia Replaced IV #Hypertension Continue home medication Monitor BP closely #Obesity Advised to lose weight #Cardiac diet #CODE STATUS Discussion with patient and prefer to remain full code at this time
[2020-06-22] MEDS: Levofloxacin 500 MG Tab PO SCH (12:10)
[2020-06-23] MEDS: Levothyroxine 100 MCG Tab PO SCH (05:23)
[2020-06-23] MEDS ORDERED: Pantoprazole 40 MG Tab.CR PO SCH (06:00)
[2020-06-23 07:15] LABS: PTT,PARTIAL THROMBOPLSTIN TIME 24.5 SEC (22.0-34.0)
[2020-06-23 07:24] LABS: ANION GAP 12.5 mEq/L (7-13); CHLORIDE,CL 105 mmol/L (98-107); SODIUM,NA 143 mmol/L (136-145)
[2020-06-23] MEDS: Dexamethasone 4 MG/ML SDV IVPUSH SCH (08:17)
[2020-06-23] MEDS: Levofloxacin 500 MG Tab PO SCH (08:17)
[2020-06-23] MEDS: Enoxaparin 40 MG/0.4 ML Syringe SUBCUT SCH (08:19)
[2020-06-23] MEDS ORDERED: LISINOPRIL PO SCH (09:00)
[2020-06-23] MEDS ORDERED: SODIUM CHLORIDE 0.9% IV SCH (09:00)
[2020-06-23] MEDS ORDERED: REMDESIVIR IV SCH (09:00)
[2020-06-23] MEDS ORDERED: HCTZ PO SCH (09:00)
--- NOTE | 2020-06-23 12:46 | PCM.DCSUM1 ---
Discharge Summary - Hospital Course Free Text/Narrative:: Patient is a 50-year-old female with medical history significant for hypertension who was admitted for COVID-19 pneumonia and acute respiratory failure with hypoxia. Patient's O2 saturation in the ED was low. She was started on supplemental oxygen. She was started on convalescent plasma, received 2 units. Also started on Decadron and Remdesivir. Patient improved clinically and was weaned off supplemental oxygen. Due to elevated D-dimers, s he is being discharged home to continue Xarelto for total of 30 days and to continue Decadron for total of 10 days. Patient is from out of town and does not have a local PCP. She has been referred to the ID clinic for follow-up. Diagnosis: Stroke: No - Discharge Data Discharge Date: 06/23/20 Discharge Disposition: Home, Self-Care 01 Condition: Stable - Referral to Home Health Primary Care Physician: PCP Not In Area - Patient Summary/Data Consults: Consultations 06/21/20 15:33 Respiratory Care Assess and Treatment [CONS] Routine - Discharge Plan *PRESCRIPTION DRUG MONITORING PROGRAM REVIEWED*: Not Applicable *COPY OF PRESCRIPTION DRUG MONITORING REPORT IN PATIENT RICARDO: Not Applicable Prescriptions/Med Rec: dexAMETHasone [Decadron] 6 mg PO DAILY #7 tablet levoFLOXacin [Levaquin] 500 mg PO DAILY #5 tablet Rivaroxaban [Xarelto] 10 mg PO DAILY #28 tab Home Medications: Home Meds Levothyroxine [Synthroid] 100 mcg PO DAILY 06/21/20 [History] Lisinopril/Hydrochlorothiazide [Lisinopril-Hctz 10-12.5 mg Tab] 1 tab PO DAILY 06/22/20 [History] Acetaminophen [Tylenol] 650 mg PO Q4H PRN tablet 06/23/20 [Rx] Rivaroxaban [Xarelto] 10 mg PO DAILY #28 tab 06/23/20 [Rx] dexAMETHasone [Decadron] 6 mg PO DAILY #7 tablet 06/23/20 [Rx] levoFLOXacin [Levaquin] 500 mg PO DAILY #5 tablet 06/23/20 [Rx] Forms: ED Department Discharge Referrals: PCP,None [Ordering Only Provider] - - Discharge Summary/Plan Comment DC Time >30 min.: Yes - General Info Date of Service: 06/23/20 Admission Dx/Problem (Free Text: Admission Diagnosis/Problem Admission Diagnosis/Problem COVID-9 PNA Subjective Update: No acute events overnight. Reports that she is doing okay. States that she coughs more when she lays on her side. Denies shortness of breath. Afebrile. Denies nausea, vomiting, diarrhea, constipation, dysuria, hematuria, or any new symptoms. - Patient Data Vitals - Most Recent: Last Vital Signs Temp 97.2 F 06/23/20 08:15 Pulse 59 L 06/23/20 08:15 Resp 21 H 06/23/20 08:15 BP 114/64 06/23/20 08:15 Pulse Ox 93 L 06/23/20 08:15 Weight - Most Recent: 186 lb 12.8 oz I&O - Last 24 hours: Intake & Output 06/22/20 06/23/20 06/23/20 22:59 06:59 14:59 Intake Total 887 Balance 887 Lab Results - Last 24 hrs: Laboratory Results - last 24 hr 06/22/20 06/23/20 06/23/20 Range/Units 05:53 06:20 06:20 WBC 10.6 H (5.0-10.0) 10^3/uL RBC 4.59 (4.2-5.4) 10^6/uL Hgb 13.3 (12.0-16.0) g/dL Hct 39.7 (37.0-47.0) % MCV 86.5 (80-100) fL MCH 29.0 (27.0-34.0) pg MCHC 33.5 (33.0-35.0) g/dL Plt Count 482 H (150-450) 10^3/uL PT 10.5 (9.0-12.0) SEC INR 1.1 (0.9-1.2) APTT 24.5 (22.0-34.0) SEC D-Dimer, Quantitative (0-400) ng/mL Sodium (136-145) mmol/L Potassium (3.5-5.1) mmol/L Chloride (98-107) mmol/L Carbon Dioxide (21-32) mmol/L Anion Gap (7-13) mEq/L BUN (7-18) mg/dL Creatinine (0.55-1.02) mg/dL Est Cr Clr Drug Dosing mL/min Estimated GFR (MDRD) BUN/Creatinine Ratio (No establ ref range) Glucose (74-99) mg/dL Calcium (8.5-10.1) mg/dL Ferritin (8-252) mg/mL Total Bilirubin (0.2-1.0) mg/dL AST (15-37) U/L ALT (14-59) U/L Alkaline Phosphatase (46-116) U/L Lactate Dehydrogenase (81-234) U/L Troponin I (0.000-0.056) ng/mL C-Reactive Protein (0.0-0.9) mg/dL Total Protein (6.4-8.2) g/dL Albumin (3.4-5.0) g/dL Globulin Albumin/Globulin Ratio Procalcitonin <0.05 (<0.10) ng/mL 06/23/20 06/23/20 06/23/20 Range/Units 06:20 06:20 06:20 WBC (5.0-10.0) 10^3/uL RBC (4.2-5.4) 10^6/uL Hgb (12.0-16.0) g/dL Hct (37.0-47.0) % MCV (80-100) fL MCH (27.0-34.0) pg MCHC (33.0-35.0) g/dL Plt Count (150-450) 10^3/uL PT (9.0-12.0) SEC INR (0.9-1.2) APTT (22.0-34.0) SEC D-Dimer, Quantitative (0-400) ng/mL Sodium 143 (136-145) mmol/L Potassium 3.5 (3.5-5.1) mmol/L Chloride 105 (98-107) mmol/L Carbon Dioxide 29 (21-32) mmol/L Anion Gap 12.5 (7-13) mEq/L BUN 18 (7-18) mg/dL Creatinine 0.98 (0.55-1.02) mg/dL Est Cr Clr Drug Dosing 56.81 mL/min Estimated GFR (MDRD) > 60 BUN/Creatinine Ratio 18.4 (No establ ref range) Glucose 94 (74-99) mg/dL Calcium 9.4 (8.5-10.1) mg/dL Ferritin 394 H (8-252) mg/mL Total Bilirubin 0.4 (0.2-1.0) mg/dL AST 47 H (15-37) U/L ALT 76 H (14-59) U/L Alkaline Phosphatase 92 (46-116) U/L Lactate Dehydrogenase 243 H (81-234) U/L Troponin I < 0.017 (0.000-0.056) ng/mL C-Reactive Protein (0.0-0.9) mg/dL Total Protein 7.7 (6.4-8.2) g/dL Albumin 3.1 L (3.4-5.0) g/dL Globulin 4.6 Albumin/Globulin Ratio 0.67 Procalcitonin (<0.10) ng/mL 06/23/20 06/23/20 Range/Units 06:20 06:20 WBC (5.0-10.0) 10^3/uL RBC (4.2-5.4) 10^6/uL Hgb (12.0-16.0) g/dL Hct (37.0-47.0) % MCV (80-100) fL MCH (27.0-34.0) pg MCHC (33.0-35.0) g/dL Plt Count (150-450) 10^3/uL PT (9.0-12.0) SEC INR (0.9-1.2) APTT (22.0-34.0) SEC D-Dimer, Quantitative 936 H (0-400) ng/mL Sodium (136-145) mmol/L Potassium (3.5-5.1) mmol/L Chloride (98-107) mmol/L Carbon Dioxide (21-32) mmol/L Anion Gap (7-13) mEq/L BUN (7-18) mg/dL Creatinine (0.55-1.02) mg/dL Est Cr Clr Drug Dosing mL/min Estimated GFR (MDRD) BUN/Creatinine Ratio (No establ ref range) Glucose (74-99) mg/dL Calcium (8.5-10.1) mg/dL Ferritin (8-252) mg/mL Total Bilirubin (0.2-1.0) mg/dL AST (15-37) U/L ALT (14-59) U/L Alkaline Phosphatase (46-116) U/L Lactate Dehydrogenase (81-234) U/L Troponin I (0.000-0.056) ng/mL C-Reactive Protein 1.3 H (0.0-0.9) mg/dL Total Protein (6.4-8.2) g/dL Albumin (3.4-5.0) g/dL Globulin Albumin/Globulin Ratio Procalcitonin (<0.10) ng/mL Med Orders - Current: Current Medications Acetaminophen (Tylenol) 650 mg PO Q4H PRN PRN Reason: Pain (Mild 1-3)/fever Dexamethasone (Dexamethasone) 6 mg IVPUSH DAILY [facility] Stop: 07/02/20 09:01 Last Admin: 06/23/20 08:17 Dose: 6 mg Documented by: Enoxaparin Sodium (Lovenox) 40 mg SUBCUT Q12HR [facility] Last Admin: 06/23/20 08:19 Dose: 40 mg Documented by: Remdesivir 100 mg/ Sodium (Chloride) 210 mls @ 210 mls/hr IV DAILY [facility] Stop: 06/26/20 09:59 Last Admin: 06/23/20 09:57 Dose: 210 mls/hr Documented by: Influenza Virus Vaccine (Pharmacy To Dose - Influenza Vaccine) 1 each IM ONET JAYA PRN PRN Reason: vaccine Levofloxacin (Levaquin) 500 mg PO DAILY [facility] Last Admin: 06/23/20 08:17 Dose: 500 mg Documented by: Levothyroxine Sodium (Synthroid) 100 mcg PO ACBRK [facility] Last Admin: 06/23/20 05:23 Dose: 100 mcg Documented by: Magnesium Hydroxide (Milk Of Magnesia) 30 ml PO Q12H PRN PRN Reason: Constipation Lisinopril/Hctz 10- 12.5 Mg Tab *Own Med * 1 each PO DAILY [facility] Last Admin: 06/23/20 08:17 Dose: 1 each Documented by: Ondansetron HCl (Zofran) 4 mg IVPUSH Q6H PRN PRN Reason: Nausea/Vomiting Pantoprazole Sodium (Protonix) 40 mg PO ACBREAKFAST [facility] Last Admin: 06/23/20 05:23 Dose: 40 mg Documented by: Discontinued Medications Dexamethasone (Dexamethasone) 6 mg IVPUSH ONETIME ONE Stop: 06/21/20 12:42 Last Admin: 06/21/20 13:45 Dose: 6 mg Documented by: Remdesivir 200 mg/ Sodium (Chloride) 210 mls @ 210 mls/hr IV ONETIME ONE Stop: 06/22/20 09:59 Last Infusion: 06/22/20 12:02 Dose: Infused Documented by: Iopamidol (Isovue-370 (76%)) 100 ml IVPUSH ONETIME ONE Stop: 06/21/20 13:10 Last Admin: 06/21/20 14:04 Dose: 90 ml Documented by: Lisinopril (Prinivil) 10 mg PO DAILY [facility] Last Admin: 06/22/20 08:41 Dose: Not Given Documented by: - Exam General: Reports: Alert, Oriented, Cooperative HEENT: Reports: Pupils Equal, Pupils Reactive, Mucous Membr. Moist/[employer] Lungs: Reports: Clear to Auscultation, Normal Respiratory Effort Cardiovascular: Reports: Regular Rate, Regular Rhythm, No Murmurs GI/Abdominal Exam: Normal Bowel Sounds, Soft, Non-Tender, No Distention Extremities: Normal Inspection, Normal Range of Motion, Non-Tender Skin: Reports: Warm, Dry, Intact Neurological: Reports: No New Focal Deficit
== END 2020-06-23 15:57 | disposition home or self-care (01) | DRG 137 ==
LOC: DL.ED 10:54 → DL.MS 14:48
PROVIDERS: ADMIT Student in an Organized Health Care Education/Training Program; ATTEND Internal Medicine
PROC: XW13325 Transfusion of Convalescent Plasma (Nonautologous) into Peripheral Vein, Percutaneous Approach, New Technology Group 5 (ICD-10-PCS; principal; 2020-06-21)
PROC: XW033E5 Introduction of Remdesivir Anti-infective into Peripheral Vein, Percutaneous Approach, New Technology Group 5 (ICD-10-PCS; 2020-06-21)
PROC: 8E0ZXY6 Isolation (ICD-10-PCS; 2020-06-21)
DX: U07.1 COVID-19 (principal); J12.89 Other viral pneumonia; J96.01 Acute respiratory failure with hypoxia; R79.89 Other specified abnormal findings of blood chemistry; H54.7 Unspecified visual loss; I10 Essential (primary) hypertension; E03.9 Hypothyroidism, unspecified; E66.9 Obesity, unspecified; Z99.81 Dependence on supplemental oxygen; Z79.890 Hormone replacement therapy; Z79.01 Long term (current) use of anticoagulants; Z79.899 Other long term (current) drug therapy
CPT/HCPCS: 36415; 36430; 71045; 71260; 80053; 82728; 82962; 83615; 83735; 84100; 84145; 84484; 85025; 85027; 85379; 85610; 85730; 86140; 86900; 86901; 93005; 94760; 96374; 99222; 99232; 99239; 99285-25; A9270-GY; J1100; J1650; J7050; P9017; Q9967; U0002